=== PATIENT | male | born 1950 | race African-American/Black ===

== ENCOUNTER → 2020-06-27 10:07 | Outpatient (CLI) | payer MEDICARE ==
[2020-06-27 10:44] LABS: BASOPHILS 0.3 % (0-2); EOSINOPHILS 1.5 % (0-7); HEMATOCRIT 37.5 % (42.0-54.0); HEMOGLOBIN 12.3 g/dL (13.5-17.5); MCH 30.4 pg (26.0-34.0); MCHC 32.8 g/dL (31.0-37.0); MCV 92.6 fL (80.0-100.0); MEAN PLATELET VOLUME 8.1 fL (7.4-10.4); MONOCYTES 15.4 % (2-11); NEUTROPHILS 40.8 % (40-80); PLATELET COUNT 273 10x3/uL (130-400); RBC 4.05 10x6/uL (4.20-6.10); RDW 14.6 % (11.5-14.5); WBC 3.2 10x3/uL (4.8-10.8)
[2020-06-27 10:55] LABS: ALBUMIN 3.9 g/dL (3.4-5.0); BILIRUBIN - TOTAL 0.16 mg/dL (0.2-1.3); CALCIUM 8.7 mg/dL (8.5-10.1); CARBAMAZEPINE (TEGRETOL) 7.6 ug/mL (4.0-12.0); CARBON DIOXIDE 30.7 mmol/L (21.0-32.0); CREATININE - SERUM 1.4 mg/dL (0.6-1.3); PHENYTOIN (DILANTIN) 16.1 ug/mL (10.0-20.0); POTASSIUM - SERUM 4.7 mmol/L (3.5-5.1); PROTEIN - SERUM 8.2 g/dL (6.4-8.2)
== END | disposition home or self-care (01) ==
LOC: D.LAB 10:07
PROVIDERS: ATTEND Psychiatry & Neurology Neurology
DX: R56.9 Unspecified convulsions (principal)